=== PATIENT | female | born 1955 | race Caucasian/White ===

== ENCOUNTER 2018-05-09 00:28 | Emergency (ER) | payer BC ==
[~2018-05-09] VITALS: Ht 157.5 cm; Wt 98.4 kg
--- NOTE | 2018-05-09 00:33 | NUR ---
PT CALLED FOR TRIAGE, PT IN RESTROOM.
[2018-05-09 00:34] VITALS: BP 151/77
== END 2018-05-09 01:46 | disposition home or self-care (01) ==
LOC: ER 00:31
DX: B02.9 Zoster without complications (principal); Z86.711 Personal history of pulmonary embolism
CPT/HCPCS: 99283; A4606; Z7610

== ENCOUNTER 2021-07-17 11:22 | Emergency (ER) | payer BC, MEDICARE ==
[~2021-07-17] VITALS: Ht 157.5 cm; Wt 79.4 kg
[2021-07-17 11:39] VITALS: BP 118/65
--- NOTE | 2021-07-17 11:50 | NUR ---
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
--- NOTE | 2021-07-17 13:55 | NUR ---
Patient discharged to home in stable condition. Written and verbal after care instructions given. Patient verbalizes understanding of instruction.
== END 2021-07-17 13:55 | disposition home or self-care (01) ==
LOC: ER 11:23
DX: S63.502A Unspecified sprain of left wrist, initial encounter (principal); S93.602A Unspecified sprain of left foot, initial encounter; S80.01XA Contusion of right knee, initial encounter; D86.9 Sarcoidosis, unspecified; Z86.69 Personal history of other diseases of the nervous system and sense organs; Z86.711 Personal history of pulmonary embolism; Z86.19 Personal history of other infectious and parasitic diseases; W01.0XXA Fall on same level from slipping, tripping and stumbling without subsequent striking against object, initial encounter; Y93.89 Activity, other specified; Y92.89 Other specified places as the place of occurrence of the external cause; Y99.8 Other external cause status
CPT/HCPCS: 73090-TC; 73110; 73564-TC; 73620-TC